=== PATIENT | female | born 1935 | race Caucasian/White ===

== ENCOUNTER 2018-10-25 04:06 | Observation (INO) | payer MEDICARE, BC ==
[2018-10-25] MEDS ORDERED: Ticagrelor 90 MG Tab PO ONE (04:46)
--- NOTE | 2018-10-25 04:54 | EDM.PDOC ---
ED HPI GENERAL MEDICAL PROBLEM - General Chief Complaint: General Stated Complaint: chest pain Time Seen by Provider: 10/25/18 04:20 Source of Information: Reports: Patient, Family History Limitations: Reports: Other (Poor history recall) - History of Present Illness INITIAL COMMENTS - FREE TEXT/NARRATIVE: Patient comes to ER via EMS for chest pain complaint. Has had several episodes of central chest pain with left arm radiation since around 6:30 last night. Also recalls episode around 10pm (she took several Nitro at that time), and again around 3am. EMS gave her an additional Nitro while en route to the ER. She also received aspirin. Patient is currently pain-free. History of CAD/previous MT/HTN. Has had stents placed. Had SOB with chest pain. Denies diaphoresis, nausea,emesis, other acute pain. No recent injuries or other illnesses. Smokes [address] REPORTER: Reports: Aspirin, Nitroglycerin Chest Pain Score (Numeric/FACES): 3 - Related Data Allergies Allergy/AdvReac Type Severity Reaction Status Date / Time cephalexin Allergy Other Verified 03/01/18 12:25 Home Meds: Home Meds Clopidogrel Bisulfate [Clopidogrel] 75 mg PO DAILY 03/01/18 [History] Furosemide 20 mg PO DAILY 03/01/18 [History] Isosorbide Mononitrate [Isosorbide Mononitrate ER] 15 mg PO DAILY 03/01/18 [ History] Lisinopril 5 mg PO DAILY 03/01/18 [History] Metoprolol Succinate 75 mg PO DAILY 03/01/18 [History] Nitroglycerin 0.4 mg SL Q5M PRN 03/01/18 [History] atorvaSTATin Calcium [Atorvastatin Calcium] 40 mg PO DAILY 03/01/18 [History] Albuterol [Proventil HFA] 2 puff INH Q4H PRN 10/25/18 [History] Past Medical History Cardiovascular History: Reports: CAD, High Cholesterol, Hypertension, [place] Respiratory History: Reports: COPD Social & Family History - Tobacco Use Smoking Status *Q: Current Every Day Smoker Packs/Tins Daily: 1 - Caffeine Use Caffeine Use: Reports: Coffee - Alcohol Use Alcohol Use History: No - Recreational Drug Use Recreational Drug Use: No Drug Use in Last 12 Months: No ED ROS GENERAL - Review of Systems Review Of Systems: See Below Constitutional: Reports: No Symptoms HEENT: Reports: No Symptoms Respiratory: Reports: Shortness of Breath. Denies: Wheezing, Pleuritic Chest Pain, Cough, Sputum, Hemoptysis Cardiovascular: Reports: Chest Pain. Denies: Edema, Lightheadedness, Orthopnea , Palpitations, Syncope GI/Abdominal: Reports: No Symptoms : Reports: No Symptoms Musculoskeletal: Reports: No Symptoms Skin: Reports: No Symptoms Neurological: Reports: No Symptoms Psychiatric: Reports: No Symptoms Hematologic/Lymphatic: Reports: No Symptoms ED EXAM, GENERAL - Physical Exam Exam: See Below Exam Limited By: No Limitations General Appearance: Alert, WD/WN, No Apparent Distress Eye Exam: Bilateral Eye: EOMI, PERRL Ears: Normal External Exam Nose: No: Nasal Deformity, Nasal Swelling, Nasal Drainage Throat/Mouth: Normal Lips, Normal Voice, No Airway Compromise Head: Atraumatic, Normocephalic Neck: Supple, Non-Tender Respiratory/Chest: No Respiratory Distress, No Accessory Muscle Use, Chest Non- Tender, Rhonchi (bilaterally) Cardiovascular: Regular Rate, Rhythm, No Edema, No Murmur Peripheral Pulses: 2+: Radial (L), Radial (R) GI/Abdominal: Soft, Non-Tender (Female) Exam: Deferred Rectal (Female) Exam: Deferred Back Exam: No: CVA Tenderness (L), CVA Tenderness (R), Muscle Spasm Extremities: Non-Tender, Normal Capillary Refill Neurological: Alert, Oriented, Normal Cognition, No Motor/Sensory Deficits Psychiatric: Normal Affect, Normal Mood Skin Exam: Warm, Dry, Intact, Normal Color EKG INTERPRETATION EKG Date: 10/25/18 Time: : Rhythm: NSR Rate (Beats/Min): 97 [place]: Normal P-Wave: Present QRS: Other (Obvious ST elevation/depession not identified) ST-T: Normal QT: Normal Comparison: No Change (previous similar morphology. Some bigeminy noted on previous EKG.) EKG Interpretation Comments: Scattered PVCs noted. Course - Vital Signs Last Recorded V/S: Last Vital Signs Temp 36.5 C 10/25/18 04:09 Pulse 111 H 10/25/18 04:09 Resp 20 10/25/18 04:09 BP 127/65 10/25/18 04:09 Pulse Ox 95 10/25/18 04:09 - Orders/Labs/Meds Orders: Active Orders 24 hr Category Date Time Status EKG Documentation Completion [RC] ASDIRECTED Care 10/25/18 04:22 Ordered Chest 2V [CR] Stat Exams 10/25/18 04:35 Ordered COMPREHENSIVE METABOLIC PN,CMP [CHEM] Stat Lab 10/25/18 04:21 Ordered D-DIMER QUANTITATIVE [COAG] Stat Lab 10/25/18 04:21 Ordered PRO B-TYPE NATRIUR PEPT,BNPPRO [CHEM] Stat Lab 10/25/18 04:21 Ordered TROPONIN I [CHEM] Stat Lab 10/25/18 04:21 Ordered Ticagrelor [Brilinta] Med 10/25/18 04:46 Once 180 mg PO ONETIME ONE EKG 12 Lead [EK] Stat Ther 10/25/18 04:21 Ordered Labs: Laboratory Tests 10/25/18 Range/Units 04:35 WBC 10.2 (4.0-10.2) K/uL RBC 3.79 (3.77-5.09) M/uL Hgb 9.5 L D (11.7-15.5) g/dL Hct 30.1 L (34.0-46.0) % MCV 79.4 L D (84.0-98.0) fL MCH 25.1 L (28.2-33.3) pg MCHC 31.6 L (31.7-36.0) g/dL RDW 15.0 H (11.2-14.1) % Plt Count 377 H (150-350) K/uL Neut % (Auto) 74.6 (45.0-80.0) % Lymph % (Auto) 11.3 (10.0-50.0) % [place] % (Auto) 11.9 (2.0-14.0) % Eos % (Auto) 1.6 (0.0-5.0) % Baso % (Auto) 0.6 (0.0-2.0) % Neut # (Auto) 7.63 H (1.40-7.00) K/uL Lymph # (Auto) 1.15 (0.50-3.50) K/uL [place] # (Auto) 1.22 H (0.00-1.00) K/uL Eos # (Auto) 0.16 (0.00-0.50) K/uL Baso # (Auto) 0.06 (0.00-0.20) K/uL Meds: Medications Discontinued Medications Generic Name Dose Route Start Last Admin Trade Name Ehsan PRN Reason Stop Dose Admin Ticagrelor 180 mg 10/25/18 04:46 Brilinta PO 10/25/18 04:47 ONETIME ONE - Radiology Interpretation Free Text/Narrative:: Chest film showed no obvious pneumothorax/pneumonia. Had changes consistent with COPD/degenerative disc disease/calcification of vessels - Re-Assessments/Exams Free Text/Narrative Re-Assessment/Exam: 10/25/18 05:11 Troponin within normal range. No acute ST changes noted on EKG. Patient remained pain-free during stay. DDimer elevated. Patient is on Plavix. She refused CT to formally rule out possibility of PE contributing to her chest pain/SOB complaint. Hgb 9.5 Minimal elevation of proBNP. Patient is agreeable with admission to observation for continued telemetry and serial troponin measurements. Departure - Departure Time of Disposition: 05:14 Disposition: Refer to Observation Condition: Good Clinical Impression: Chest pain Qualifiers: Chest pain type: unspecified Qualified Code(s): R07.9 - Chest pain, unspecified - Discharge Information Referrals: Ananth Fajardo MD [Primary Care Provider] - - Problem List & Annotations (1) Chest pain SNOMED Code(s): 22726253 Code(s): R07.9 - CHEST PAIN, UNSPECIFIED Status: Acute Priority: High Current Visit: Yes Annotation/Comment:: Chest pain improved with Nitro. Admit for serial troponin measurements and cardiac monitoring. Transfer to [place] to see Cardiology will be considered depending on patient's clinical course. Qualifiers: Chest pain type: unspecified Qualified Code(s): R07.9 - Chest pain, unspecified (2) COPD (chronic obstructive pulmonary disease) SNOMED Code(s): 11954217 Code(s): J44.9 - CHRONIC OBSTRUCTIVE PULMONARY DISEASE, UNSPECIFIED Status : Chronic Priority: Medium Current Visit: Yes Annotation/Comment:: Patient has rescue inhaler but is not receiving any other treatmet aimed at COPD symptom reduction. Today's chest pain/SOB complaint may be related to COPD exacerbation given the heat and humidity. Will initiate neb treatments. Anticipate patient will be started on preventative treatment plan once discharged. (3) HTN (hypertension) SNOMED Code(s): 61133543 Code(s): I10 - ESSENTIAL (PRIMARY) HYPERTENSION Status: Chronic Priority : Low Current Visit: No Annotation/Comment:: Has been stable per patient. Observe trends. Qualifiers: Hypertension type: essential hypertension Qualified Code(s): I10 - Essential (primary) hypertension (4) CAD (coronary artery disease) SNOMED Code(s): 85002364 Code(s): I25.10 - ATHSCL HEART DISEASE OF [place] CORONARY ARTERY W/O ANG PCTRS Status: Chronic Priority: High Current Visit: Yes Annotation/ Comment:: History of previous [place]. Has had stents placed. Qualifiers: Coronary Disease-Associated Artery/Lesion type: unspecified vessel or lesion type Associated angina: angina presence unspecified (5) Dyslipidemia SNOMED Code(s): 145526778 Code(s): E78.5 - HYPERLIPIDEMIA, UNSPECIFIED Status: Chronic Priority: Low Current Visit: No Annotation/Comment:: Patient is not able to recall how well she is doing on her medication for this. (6) Chronic back pain SNOMED Code(s): 317809578 Code(s): M54.9 - DORSALGIA, UNSPECIFIED; G89.29 - OTHER CHRONIC PAIN Status : Chronic Priority: Low Current Visit: No Annotation/Comment:: stable per patient (7) Tobacco dependence SNOMED Code(s): 50540112 Code(s): F17.200 - NICOTINE DEPENDENCE, UNSPECIFIED, UNCOMPLICATED Status: Chronic Priority: Low Current Visit: No Annotation/Comment:: Patient is not interested in quitting at this time - Problem List Review Problem List Initiated/Reviewed/Updated: Yes - My Orders Last 24 Hours: My Active Orders 10/25/18 04:21 COMPREHENSIVE METABOLIC PN,CMP [CHEM] Stat D-DIMER QUANTITATIVE [COAG] Stat PRO B-TYPE NATRIUR PEPT,BNPPRO [CHEM] Stat TROPONIN I [CHEM] Stat EKG 12 Lead [EK] Stat 10/25/18 04:22 EKG Documentation Completion [RC] ASDIRECTED 10/25/18 04:35 Chest 2V [CR] Stat 10/25/18 04:46 Ticagrelor [Brilinta] 180 mg PO ONETIME ONE - Assessment/Plan Admission H&P: Please use this note as an admission H&P Last 24 Hours: My Active Orders 10/25/18 04:21 COMPREHENSIVE METABOLIC PN,CMP [CHEM] Stat D-DIMER QUANTITATIVE [COAG] Stat PRO B-TYPE NATRIUR PEPT,BNPPRO [CHEM] Stat TROPONIN I [CHEM] Stat EKG 12 Lead [EK] Stat 10/25/18 04:22 EKG Documentation Completion [RC] ASDIRECTED 10/25/18 04:35 Chest 2V [CR] Stat 10/25/18 04:46 Ticagrelor [Brilinta] 180 mg PO ONETIME ONE Assessment:: as above. Patient is stable and suitable for general supervision. Plan: as above
[2018-10-25] MEDS ORDERED: Nitroglycerin 0.4 MG Tab.SL SL PRN (05:38)
[2018-10-25] MEDS: Albuterol/Ipratropium 3.0-0.5 MG/3 ML Neb Soln NEB SCH ×2 (06:25→08:52)
[2018-10-25] MEDS: Nicotine 21 MG/24 Hr Patch TRDERM SCH ×2 (06:25→08:47)
[2018-10-25] MEDS ORDERED: Iopamidol 755 Mg/ML 100 ML Bottle IVPUSH ONE (07:41)
[2018-10-25] MEDS ORDERED: Iopamidol 755 MG/ML 50 ML Bottle ONE (07:55)
[2018-10-25] MEDS ORDERED: Furosemide 20 MG Tab PO SCH (08:00)
[2018-10-25] MEDS ORDERED: Clopidogrel 75 MG Tab PO SCH (08:00)
[2018-10-25] MEDS ORDERED: atorvaSTATin 40 MG Tab PO SCH (08:00)
[2018-10-25] MEDS ORDERED: Metoprolol Succinate 50 MG Tab.ER PO SCH (08:00)
[2018-10-25] MEDS ORDERED: Lisinopril 5 MG Tab PO SCH (08:00)
[2018-10-25] MEDS ORDERED: Isosorbide Mononitrate 30 MG Tab.ER PO SCH (08:00)
[2018-10-25] MEDS ORDERED: Morphine 2 MG/ML Syringe IVPUSH ONE (10:08)
[2018-10-25] MEDS ORDERED: Ondansetron 4 MG/2 ML SDV IVPUSH ONE (10:09)
[2018-10-25] MEDS ORDERED: Heparin Sodium 5,000 Units/ML Vial IVPUSH ONE (11:39)
[2018-10-25] MEDS ORDERED: Heparin Sodium/D5W 25,000 UNITS/500 ML BAG IV SCH (11:45)
--- NOTE | 2018-10-25 11:52 | PCM.DCSUM1 ---
Discharge Summary - Hospital Course Brief History: Patient admitted [facility] after experiencing chest pain. Diagnosis: Stroke: No - Discharge Data Discharge Date: 10/25/18 Discharge Disposition: DC/Tfer to Acute Hospital 02 Condition: Good - Discharge Diagnosis/Problem(s) (1) Chest pain SNOMED Code(s): 52240983 ICD Code: R07.9 - CHEST PAIN, UNSPECIFIED Status: Acute Priority: High Problem Details: Second Troponin at 6 hour interval positive. Patient does not specifically complain of chest pain at this time but says she does not 'feel right'. No shortness of breath. Resting comfortably in room. Qualifiers: Chest pain type: unspecified Qualified Code(s): R07.9 - Chest pain, unspecified (2) COPD (chronic obstructive pulmonary disease) SNOMED Code(s): 13439795 ICD Code: J44.9 - CHRONIC OBSTRUCTIVE PULMONARY DISEASE, UNSPECIFIED Status : Chronic Priority: Medium Problem Details: Patient has rescue inhaler but is not receiving any other treatmet aimed at COPD symptom reduction. Recommend patient be started on preventative treatment plan once discharged. Qualifiers: COPD type: emphysema (3) HTN (hypertension) SNOMED Code(s): 25503934 ICD Code: I10 - ESSENTIAL (PRIMARY) HYPERTENSION Status: Chronic Priority : Low Problem Details: Has been stable per patient. Observe trends. Qualifiers: Hypertension type: essential hypertension Qualified Code(s): I10 - Essential (primary) hypertension (4) CAD (coronary artery disease) SNOMED Code(s): 30850562 ICD Code: I25.10 - ATHSCL HEART DISEASE OF [place] CORONARY ARTERY W/O ANG PCTRS Status: Chronic Priority: High Problem Details: History of previous [facility]. Has had stents placed. Qualifiers: Coronary Disease-Associated Artery/Lesion type: unspecified vessel or lesion type Associated angina: angina presence unspecified (5) Dyslipidemia SNOMED Code(s): 155462518 ICD Code: E78.5 - HYPERLIPIDEMIA, UNSPECIFIED Status: Chronic Priority: Low Problem Details: Patient is not able to recall how well she is doing on her medication for this. (6) Chronic back pain SNOMED Code(s): 614559786 ICD Code: M54.9 - DORSALGIA, UNSPECIFIED; G89.29 - OTHER CHRONIC PAIN Status: Chronic Priority: Low Problem Details: stable per patient Qualifiers: Back pain location: back pain in unspecified location Back pain laterality : unspecified Qualified Code(s): M54.9 - Dorsalgia, unspecified; G89.29 - Other chronic pain (7) Tobacco dependence SNOMED Code(s): 02059789 ICD Code: F17.200 - NICOTINE DEPENDENCE, UNSPECIFIED, UNCOMPLICATED Status : Chronic Priority: Low Problem Details: Patient is not interested in quitting at this time (8) Primary cancer of right lung SNOMED Code(s): 77599446 ICD Code: C34.91 - MALIGNANT NEOPLASM OF UNSP PART OF RIGHT BRONCHUS OR LUNG Status: Chronic Priority: Low Problem Details: Patient has elected to not undergo cancer therapy at this time - Patient Summary/Data Hospital Course: Second troponin scheduled at 6 hour interval positive. Patient at that time was without chest pain complaint. Had received a dose of Nitro followed by [facility] once since admission. Call placed to [facility] and transfer arranged with Dr. Wang as accepting MD. Heparin bolus and drip ordered. Transfer by EMS arranged. - Discharge Plan Home Medications: Home Meds Clopidogrel Bisulfate [Clopidogrel] 75 mg PO DAILY 03/01/18 [History] Furosemide 20 mg PO DAILY 03/01/18 [History] Isosorbide Mononitrate [Isosorbide Mononitrate ER] 15 mg PO DAILY 03/01/18 [ History] Lisinopril 5 mg PO DAILY 03/01/18 [History] Metoprolol Succinate 75 mg PO DAILY 03/01/18 [History] Nitroglycerin 0.4 mg SL Q5M PRN 03/01/18 [History] atorvaSTATin Calcium [Atorvastatin Calcium] 40 mg PO DAILY 03/01/18 [History] Albuterol [Proventil HFA] 2 puff INH Q4H PRN 10/25/18 [History] Forms: ED Department Discharge Referrals: Ananth Fajardo MD [Primary Care Provider] - - Discharge Summary/Plan Comment DC Time >30 min.: No - Patient Data Vitals - Most Recent: Last Vital Signs Temp 36.8 C 10/25/18 11:10 Pulse 95 10/25/18 11:10 Resp 20 10/25/18 11:10 BP 135/61 10/25/18 11:10 Pulse Ox 99 10/25/18 11:10 Weight - Most Recent: 53.841 kg I&O - Last 24 hours: Intake & Output 10/24/18 10/25/18 10/25/18 22:59 06:59 14:59 Output Total 400 Balance -400 Lab Results - Last 24 hrs: Laboratory Results - last 24 hr 10/25/18 10/25/18 10/25/18 Range/Units 04:35 04:35 04:35 WBC 10.2 (4.0-10.2) K/uL RBC 3.79 (3.77-5.09) M/uL Hgb 9.5 L D (11.7-15.5) g/dL Hct 30.1 L (34.0-46.0) % MCV 79.4 L D (84.0-98.0) fL MCH 25.1 L (28.2-33.3) pg MCHC 31.6 L (31.7-36.0) g/dL RDW 15.0 H (11.2-14.1) % Plt Count 377 H (150-350) K/uL Neut % (Auto) 74.6 (45.0-80.0) % Lymph % (Auto) 11.3 (10.0-50.0) % [place] % (Auto) 11.9 (2.0-14.0) % Eos % (Auto) 1.6 (0.0-5.0) % Baso % (Auto) 0.6 (0.0-2.0) % Neut # (Auto) 7.63 H (1.40-7.00) K/uL Lymph # (Auto) 1.15 (0.50-3.50) K/uL [place] # (Auto) 1.22 H (0.00-1.00) K/uL Eos # (Auto) 0.16 (0.00-0.50) K/uL Baso # (Auto) 0.06 (0.00-0.20) K/uL D-Dimer, Quantitative 999 H (0-400) ng/mL Sodium 137 (136-145) mmol/L Potassium 3.6 (3.5-5.1) mmol/L Chloride 101 (98-107) mmol/L Carbon Dioxide 26.3 (21.0-32.0) mmol/L BUN 15 (7-18) mg/dL Creatinine 0.95 (0.51-1.17) mg/dL Est Cr Clr Drug Dosing 39.91 mL/min Estimated GFR (MDRD) 56 mL/min Glucose 108 H (74-106) mg/dL Calcium 9.1 (8.5-10.1) mg/dL Magnesium (1.8-2.4) mg/dL Total Bilirubin 0.3 (0.2-1.0) mg/dL AST 21 (15-37) U/L ALT 19 (12-78) U/L Alkaline Phosphatase 81 (46-116) IU/L Troponin I 0.030 (0.000-0.056) ng/mL NT-Pro-B Natriuret Pep 320 H (0-125) pg/mL Total Protein 6.3 L (6.4-8.2) g/dL Albumin 3.2 L (3.4-5.0) g/dL 10/25/18 10/25/18 Range/Units 04:35 10:08 WBC (4.0-10.2) K/uL RBC (3.77-5.09) M/uL Hgb (11.7-15.5) g/dL Hct (34.0-46.0) % MCV (84.0-98.0) fL MCH (28.2-33.3) pg MCHC (31.7-36.0) g/dL RDW (11.2-14.1) % Plt Count (150-350) K/uL Neut % (Auto) (45.0-80.0) % Lymph % (Auto) (10.0-50.0) % [place] % (Auto) (2.0-14.0) % Eos % (Auto) (0.0-5.0) % Baso % (Auto) (0.0-2.0) % Neut # (Auto) (1.40-7.00) K/uL Lymph # (Auto) (0.50-3.50) K/uL [place] # (Auto) (0.00-1.00) K/uL Eos # (Auto) (0.00-0.50) K/uL Baso # (Auto) (0.00-0.20) K/uL D-Dimer, Quantitative (0-400) ng/mL Sodium (136-145) mmol/L Potassium (3.5-5.1) mmol/L Chloride (98-107) mmol/L Carbon Dioxide (21.0-32.0) mmol/L BUN (7-18) mg/dL Creatinine (0.51-1.17) mg/dL Est Cr Clr Drug Dosing mL/min Estimated GFR (MDRD) mL/min Glucose (74-106) mg/dL Calcium (8.5-10.1) mg/dL Magnesium 1.9 (1.8-2.4) mg/dL Total Bilirubin (0.2-1.0) mg/dL AST (15-37) U/L ALT (12-78) U/L Alkaline Phosphatase (46-116) IU/L Troponin I 0.096 H* (0.000-0.056) ng/mL NT-Pro-B Natriuret Pep (0-125) pg/mL Total Protein (6.4-8.2) g/dL Albumin (3.4-5.0) g/dL Med Orders - Current: Current Medications Albuterol/Ipratropium (Duoneb 3.0-0.5 Mg/3 Ml) 3 ml NEB Q6HRRT [facility] Last Admin: 10/25/18 08:52 Dose: 3 ml Atorvastatin Calcium (Lipitor) 40 mg PO DAILY [facility] Last Admin: 10/25/18 08:45 Dose: 40 mg Clopidogrel Bisulfate (Plavix) 75 mg PO DAILY [facility] Last Admin: 10/25/18 08:44 Dose: 75 mg Furosemide (Lasix) 20 mg PO DAILY [facility] Last Admin: 10/25/18 08:44 Dose: 20 mg Heparin Sodium (Porcine) (Heparin Sodium) 3,500 units IVPUSH .BOLUS ONE Stop: 10/25/18 11:40 Heparin Sodium/Dextrose (Heparin 25,000 Units In D5w 500 Ml) 25,000 units in 500 mls @ 12.922 mls/hr IV TITRATE [facility]; Protocol Isosorbide Mononitrate (Imdur) 15 mg PO DAILY [facility] Last Admin: 10/25/18 08:42 Dose: 15 mg Lisinopril (Prinivil) 5 mg PO DAILY [facility] Last Admin: 10/25/18 08:45 Dose: 5 mg Metoprolol Succinate (Toprol Xl) 75 mg PO DAILY [facility] Last Admin: 10/25/18 08:42 Dose: 75 mg Nicotine (Habitrol) 21 mg TRDERM DAILY [facility] Last Admin: 10/25/18 08:47 Dose: Not Given Nitroglycerin (Nitrostat) 0.4 mg SL Q5M PRN PRN Reason: Chest Pain Last Admin: 10/25/18 09:59 Dose: 0.4 mg Discontinued Medications Iopamidol (Isovue-370 (76%)) Confirm Administered Dose 100 ml .ROUTE .STK-MED ONE Stop: 10/25/18 07:56 Last Admin: 10/25/18 08:31 Dose: 100 ml Iopamidol (Isovue-370 (76%)) 100 ml IVPUSH ONETIME ONE Stop: 10/25/18 07:42 Morphine Sulfate (Morphine) 2 mg IVPUSH ONETIME ONE Stop: 10/25/18 10:09 Last Admin: 10/25/18 10:59 Dose: 2 mg Ondansetron HCl (Zofran) 4 mg IVPUSH ONETIME ONE Stop: 10/25/18 10:10 Last Admin: 10/25/18 10:59 Dose: 4 mg Ticagrelor (Brilinta) 180 mg PO ONETIME ONE Stop: 10/25/18 04:47 Last Admin: 10/25/18 04:56 Dose: 180 mg
== END 2018-10-25 12:35 ==
LOC: LL.ED 04:06 → LL.MS 05:15 → UNDOADMOB 05:15 → UNDODISOB 12:35
PROVIDERS: ADMIT Emergency Medicine; ATTEND Emergency Medicine
DX: R07.9 Chest pain, unspecified (principal); J43.9 Emphysema, unspecified; C34.91 Malignant neoplasm of unspecified part of right bronchus or lung; I10 Essential (primary) hypertension; E78.5 Hyperlipidemia, unspecified; M54.9 Dorsalgia, unspecified; G89.29 Other chronic pain; I25.2 Old myocardial infarction; I25.10 Atherosclerotic heart disease of native coronary artery without angina pectoris; E78.00 Pure hypercholesterolemia, unspecified; F17.210 Nicotine dependence, cigarettes, uncomplicated; Z88.1 Allergy status to other antibiotic agents; Z79.899 Other long term (current) drug therapy
CPT/HCPCS: 36415; 71046; 71275; 80053; 83735; 83880; 84484; 85025; 85379; 93005; 96365; 96375; 99285-25; A9270-GY; G0378; J1644; J2270; J2405; J7620-GY; Q9967